=== PATIENT | male | born 1980 | race Caucasian/White ===

== ENCOUNTER 2019-09-15 00:44 | Emergency (ER) | payer OTHER ==
[~2019-09-15] VITALS: Ht 188 cm; Wt 137.3 kg
[2019-09-15 00:49] VITALS: TEMP 99.5
[2019-09-15 01:10] LABS: COLLECTION METHOD CLEAN CATCH
[2019-09-15 01:18] LABS: MUCOUS Present /lpf; PH 5 (5-8); SQUAMOUS EPITHELIAL None Seen /hpf; URINE APPEARANCE Clear; URINE BACTERIA None Seen /hpf; URINE BILIRUBIN Negative (NEGATIVE); URINE BLOOD 3+ (NEGATIVE); URINE COLOR Yellow; URINE GLUCOSE Negative (NEGATIVE); URINE KETONE Negative (NEGATIVE); URINE LEUKOCYTE ESTERASE Negative (NEGATIVE); URINE NITRATE Negative (NEGATIVE); URINE PROTEIN(semi-quant) Negative (NEGATIVE); URINE RBC 20-50 /hpf; URINE UROBILINOGEN Negative (NEGATIVE)
[2019-09-15 01:33] LABS: BASO # 0.1 (0.0-0.2); BASO % 0.6 % (0.0-2.0); EOS # 0.2 (0.0-0.7); EOS % 2.6 % (0-4.0); GRAN # 4.7 (1.4-6.5); GRAN % 57.8 % (42.2-75.2); HEMATOCRIT 43.5 % (42.0-52.0); HEMOGLOBIN 14.5 g/dl (13.5-18.0); LYMPH # 2.5 (1.2-3.4); LYMPH % 30.9 % (20.0-51.0); MEAN CELL VOLUME 85 fl (80.0-100.0); MEAN CORPUSCULAR HEMOGLOBIN 28 pg (27.0-31.0); MEAN CORPUSCULAR HGB CONC 33 g/dl (33.0-37.0); MEAN PLATELET VOLUME 8.3 fl (7.4-10.4); MONO # 0.7 (0.1-0.6); MONO % 7.9 % (1.7-9.3); PLATELET COUNT 325 K/mm3 (130-400); RED BLOOD COUNT 5.15 M/mm3 (4.20-5.60); REDCELL DISTRIBUTION WIDTH-CV 12.7 % (11.5-14.5)
[2019-09-15 01:46] LABS: ALBUMIN 4.8 gm/dL (3.5-5.0); BILIRUBIN,TOTAL 0.4 mg/dL (0.0-1.0); CALCIUM 10.1 mg/dL (8.4-10.2); CREATININE, serum 0.97 (0.66-1.25); POTASSIUM 3.5 mmol/L (3.4-5.0); TOTAL PROTEIN 7.9 gm/dL (6.4-8.2)
[2019-09-15 12:13] VITALS: BP 152/98; PULSE 105
== END 2019-09-15 12:17 | disposition home or self-care (01) ==
LOC: COL.ER 00:44
PROVIDERS: Emergency Medicine
DX: G43.909 Migraine, unspecified, not intractable, without status migrainosus (principal); N23 Unspecified renal colic; Z90.89 Acquired absence of other organs; Z87.442 Personal history of urinary calculi
CPT/HCPCS: J1170; J1200; J1790; J2405; J3010; J7030; J7040

== ENCOUNTER 2019-09-17 01:04 | Inpatient (IN) | payer OTHER ==
[~2019-09-17] VITALS: Ht 188 cm; Wt 100.8 kg
[2019-09-17] VITALS (755 sets, daily range): BP systolic 111–134; BP diastolic 66–90; PULSE 76–101; TEMP 97.4–98.5; O2SAT 72–100
[2019-09-17 02:20] LABS: BASO % 0.4 % (0.0-2.0); EOS # 0.1 (0.0-0.7); EOS % 1.1 % (0-4.0); GRAN # 6.7 (1.4-6.5); GRAN % 70.5 % (42.2-75.2); LYMPH # 2.1 (1.2-3.4); MEAN CELL VOLUME 87 fl (80.0-100.0); MEAN CORPUSCULAR HGB CONC 33 g/dl (33.0-37.0); MEAN PLATELET VOLUME 8.6 fl (7.4-10.4); MONO # 0.6 (0.1-0.6); MONO % 5.8 % (1.7-9.3); PLATELET COUNT 373 K/mm3 (130-400); REDCELL DISTRIBUTION WIDTH-CV 12.8 % (11.5-14.5)
[2019-09-17 02:24] LABS: HEMATOCRIT 33.9 % (42.0-52.0); HEMOGLOBIN 11.1 g/dl (13.5-18.0); MEAN CORPUSCULAR HEMOGLOBIN 28 pg (27.0-31.0)
[2019-09-17 02:29] LABS: INR 1.3 (0.8-3.0); PROTHROMBIN TIME 14.9 SECONDS (9.7-12.8)
[2019-09-17 02:31] LABS: PARTIAL THROMBOPLASTIN TIME 28.7 SECONDS (26.0-37.0)
[2019-09-17 02:34] LABS: BILIRUBIN,TOTAL 0.7 mg/dL (0.0-1.0); C-REACTIVE PROTEIN 1.5 mg/dL (0.0-0.9); CALCIUM 8.8 mg/dL (8.4-10.2); CREATININE, serum 1.02 (0.66-1.25); POTASSIUM 3.9 mmol/L (3.4-5.0); TOTAL PROTEIN 6.6 gm/dL (6.4-8.2)
[2019-09-17 02:49] LABS: ERYTHROCYTE SEDIMENTATION RATE 13 mm/hr (0-15)
[2019-09-17 03:05] LABS: COLLECTION METHOD CLEAN CATCH
[2019-09-17 03:10] LABS: MUCOUS Present /lpf; PH 6 (5-8); SQUAMOUS EPITHELIAL None Seen /hpf; URINE APPEARANCE Clear; URINE BACTERIA None Seen /hpf; URINE BILIRUBIN Negative (NEGATIVE); URINE BLOOD Negative (NEGATIVE); URINE COLOR Yellow; URINE GLUCOSE Negative (NEGATIVE); URINE KETONE 1+ (NEGATIVE); URINE LEUKOCYTE ESTERASE Negative (NEGATIVE); URINE NITRATE Negative (NEGATIVE); URINE PROTEIN(semi-quant) Negative (NEGATIVE); URINE RBC 0-2 /hpf; URINE UROBILINOGEN Negative (NEGATIVE)
--- NOTE | 2019-09-17 04:02 | NUR ---
Revceived telephone report from BEATRICE Thompson.
[2019-09-17] MEDS ORDERED: NEURONTIN600 MG/TAB PO (04:04)
[2019-09-17] MEDS ORDERED: KLONOPIN 1MG1 MG PO (04:05)
[2019-09-17] MEDS ORDERED: SOMA 350MG350 MG/TAB PO (04:05)
[2019-09-17] MEDS ORDERED: INDERAL40 MG PO (04:06)
[2019-09-17] MEDS ORDERED: LEXAPRO 10MG10 MG PO (04:06)
--- NOTE | 2019-09-17 04:30 | NUR ---
Patient alert and oriented. Reporting 9\10 pain to flanks, head and abdomen to rectum. Notified hospitalist. VS stable at this time.
[2019-09-17] MEDS ORDERED: EXCEDRIN1 TAB PO (04:54)
[2019-09-17] MEDS ORDERED: PEPTO BISMOL262 MG (04:55)
[2019-09-17] MEDS ORDERED: MULTI VITAMINS1 TAB PO (04:57)
[2019-09-17] MEDS ORDERED: NIACIN 100100 MG/TAB PO (04:58)
[2019-09-17] MEDS ORDERED: BENADRYL25 M2 PO (04:58)
[2019-09-17] MEDS ORDERED: KLONOPIN2 MG PO (05:00)
--- NOTE | 2019-09-17 05:30 | NUR ---
Assisted up to commode. Reporting dizziness and weakness while standing. Able to transfer from bed to bedside commode with standby assist. Instructed patient to call if needing to get up and not to attempt transfer independently. Had dark red bloody stool. Continues to report abdominal and head pain. Notified hospitalist and received PRN dose of dilauded. Will continue to monitor.
[2019-09-17 06:01] LABS: BASO # 0.1 (0.0-0.2); BASO % 0.4 % (0.0-2.0); EOS # 0.1 (0.0-0.7); EOS % 0.5 % (0-4.0); GRAN # 10.4 (1.4-6.5); GRAN % 80.2 % (42.2-75.2); HEMATOCRIT 32.1 % (42.0-52.0); HEMOGLOBIN 10.2 g/dl (13.5-18.0); LYMPH # 1.6 (1.2-3.4); LYMPH % 12.3 % (20.0-51.0); MEAN CELL VOLUME 89 fl (80.0-100.0); MEAN CORPUSCULAR HEMOGLOBIN 28 pg (27.0-31.0); MEAN CORPUSCULAR HGB CONC 32 g/dl (33.0-37.0); MEAN PLATELET VOLUME 8.7 fl (7.4-10.4); MONO # 0.8 (0.1-0.6); MONO % 6.2 % (1.7-9.3); PLATELET COUNT 359 K/mm3 (130-400); RED BLOOD COUNT 3.62 M/mm3 (4.20-5.60); REDCELL DISTRIBUTION WIDTH-CV 12.9 % (11.5-14.5)
--- NOTE | 2019-09-17 07:30 | NUR ---
Received report from BEATRICE Selby. Patient is restless in bed and complaining of pain. Patient states pain is 9/10 and pain meds are not working. This nurse will assess patient's pain. Call light and night side table are within reach.
--- NOTE | 2019-09-17 08:00 | NUR ---
Patient has blood in urine and stool. Blood is bright red to reddish brown. Will continue to monitor guest throughout stay.
--- NOTE | 2019-09-17 12:00 | NUR ---
Patient complains of pain in the abdomen which radiates to the flanks, to the intestines and to lower back. Patient stated his pain is unbearable and wanted to speak with the doctor in reference to his pain. This nurse informed the patient she would contact the doctor and follow up with him afterwards.
--- NOTE | 2019-09-17 12:06 | NUR ---
SW contacted the patient to discuss discharge plan. The patient lives in [place] with a roommate. He reports independence with ADLs and has a cane available to him when needed. He states that he needs occasional assistance getting up the stairs to his bathroom, but he states that his roommate is able to assist him up the stairs. The patient receives primary care at [facility] and he receives his medications at [facility]. He reports no difficulties obtaining his meds. The patient does not have advanced directives completed. He states that his next of kin is his , Sola Sam (ph#[phone]). Sola lives in [place], [place]. 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 The patient plans to return back home with his roommate upon discharge. SW to continue to follow as needed.
--- NOTE | 2019-09-17 12:26 | NUR ---
First visit from the body sander. No needs right now.
--- NOTE | 2019-09-17 14:52 | NUR ---
This nurse spoke with Dr. Chappell in reference to the patient's complaint of pain medication not being strong enough. Dr. Chappell stated he was not going to increase current dosage of Fentanyl 50 mcg but gave the verbal order to increase current frequency from every three hours to every two hours.
[2019-09-17 15:02] LABS: HEMATOCRIT 27.8 % (42.0-52.0)
--- NOTE | 2019-09-17 19:20 | NUR ---
Report given to Joanna. Patient is sleeping in bed. Call light and bedside table are within reach.
--- NOTE | 2019-09-17 21:20 | NUR ---
PATIENT C/O NAUSEA. SPOKE TO NEGRO FARIAS AND SHE SAID DUE TO HIS PREVIOUS QTC LEVEL WE CAN NOT GIVE ZOFRAN. SHE ALSO ORDERED AN EKG, AND A MAGNESIUM LEVEL AND PUT A HOLD ON LEXEPRO AND FLEXERIL.
[2019-09-17 22:23] LABS: HEMATOCRIT 26.8 % (42.0-52.0); HEMOGLOBIN 8.7 g/dl (13.5-18.0)
--- NOTE | 2019-09-17 23:00 | NUR ---
GI DOCTOR CALLED, MAY HAVE BEEN . HE ASKED ABOUT THE PATIENT AND IF HE WAS TOLERATING THE BOWEL PREP OKAY. I TOLD HIM THE PATIENT WAS DOING GREAT WITH IT. HE SAID THAT WILL BE DOING THE EGD TOMORROW AND IT IS SCHEDULED FOR 0900.
[2019-09-18] VITALS (433 sets, daily range): BP systolic 117–168; BP diastolic 53–87; PULSE 71–111; TEMP 95.6–98.1; O2SAT 85–100
--- NOTE | 2019-09-18 02:00 | NUR ---
PATIENT COMPLAINING OF SEVERE HEADACHE AND SAID FENTANYL WASNT HELPING. HE ASKED FOR ME TO CALL THE PROVIDER TO SEE IF HE COULD GET SOMETHING ELSE FOR PAIN. CALLED DINORA AND SHE SAID SHE SPOKE TO ABOUT THIS PATEINT AND SAID HE WILL NOT GET ANY OTHER PAIN MEDS SCHEDULED.
--- NOTE | 2019-09-18 02:40 | NUR ---
PATIENT WAS STILL C/O OF SEVERE HEADACHE AND BECAME EMOTIONAL AND SAID HE FELT LIKE THE DOCTORS WERE NOT LISTENING TO HIM AND DIDNT BELIEVE HE WAS REALLY IN PAIN. HE BEGAN TO TELL ME IT IS HIS RIGHT TO SEE HIS DOCTOR IF HE WANTS TO AND SO HE ASKED FOR DINORA TO COME DOWN TO SPEAK TO HIM FACE TO FACE. HE BEGAN TO GO ON TELLING ME HIS HEADACHES HAVE BEEN SO BAD IN THE PAST THAT HES HAD TO GET ADMITTED AND BE ON A KETAMINE GTT AND BE PUT IN A COMA. HE WAS FEARFUL THAT WOULD HAPPEN AGAIN. HE ALSO BROUGHT UP HE COULD CALL [facility] ABOUT THIS SITUATION. I TRIED TO REASSURE HIM THAT NO ONE IS NEGLECTING HIS PAIN AND THAT DINORA IS JUST VERY BUSY RIGHT NOW BUT I WILL CALL HER AGAIN TO COME AND SEE HIM.
--- NOTE | 2019-09-18 03:30 | NUR ---
CALLED DINORA AGAIN ABOUT PATIENT'S HEADACHE AND NEED TO SPEAK TO HER FACE TO FACE. SHE SAID SHE WOULD COME DOWN.
--- NOTE | 2019-09-18 04:00 | NUR ---
DINORA AT PATIENTS BEDSIDE. CONVERSATION WENT WELL BETWEEN THEM. PATIENT STATED HE FELT LISTENED TO AFTERWARDS AND HE FELT BETTER. DINORA MADE CHANGES TO PATIENTS PAIN MEDS, SWITCHED FENTANYL TO DILAUDID Q2HRS BECAUSE PATIENT SAID HE WOULD PREFER THAT INSTEAD.
[2019-09-18 06:11] LABS: BASO % 0.8 % (0.0-2.0); EOS # 0.2 (0.0-0.7); EOS % 4.1 % (0-4.0); GRAN # 2.4 (1.4-6.5); GRAN % 46.6 % (42.2-75.2); LYMPH # 2.1 (1.2-3.4); LYMPH % 41.1 % (20.0-51.0); MEAN CELL VOLUME 86 fl (80.0-100.0); MEAN CORPUSCULAR HGB CONC 33 g/dl (33.0-37.0); MEAN PLATELET VOLUME 8.8 fl (7.4-10.4); MONO # 0.4 (0.1-0.6); MONO % 7.2 % (1.7-9.3); REDCELL DISTRIBUTION WIDTH-CV 12.9 % (11.5-14.5)
[2019-09-18 06:14] LABS: MEAN CORPUSCULAR HEMOGLOBIN 29 pg (27.0-31.0); PLATELET COUNT 246 K/mm3 (130-400)
[2019-09-18 06:23] LABS: CALCIUM 7.3 mg/dL (8.4-10.2); CREATININE, serum 0.7 (0.66-1.25); POTASSIUM 3.5 mmol/L (3.4-5.0)
--- NOTE | 2019-09-18 07:10 | NUR ---
GAVE REPORT TO BEATRICE BURCE.
--- NOTE | 2019-09-18 08:54 | NUR ---
Pt to Endoscopy Lab for procedure
--- NOTE | 2019-09-18 11:26 | NUR ---
PATIENT WILL TRANSFER TO [facility] D/T NEEDING INTERVENTIONAL RADIOLOGY. PATIENT ACCEPTED BY DR. SAMAYOA. HE WILL GO TO ROOM 3289. REPORT WILL BE CALLED TO [phone]. [facility] WILL TRANSPORT THE PATIENT. THEY WILL BE HERE SHORTLY TO GET THE PATIENT. CONSENT TO TRANSFER SIGNED BY PATIENT AND DR. POND. PACKET MADE AND IMAGES CLOUDED TO [facility].
--- NOTE | 2019-09-18 11:30 | NUR ---
The patient is to transfer to [facility]. No additional needs at this time.
--- NOTE | 2019-09-18 12:04 | NUR ---
Report called to receiving nurse at [facility]. Patient transferred to Room 3289 at [facility] via EMS at 1200.
== END 2019-09-18 12:00 | disposition short-term general hospital (02) | DRG 378 ==
LOC: COL.ER 01:04 → ICU 03:29 → IMCU 09-18 09:58
PROVIDERS: Emergency Medicine; Internal Medicine; Internal Medicine Gastroenterology; ADMIT Student in an Organized Health Care Education/Training Program
PROC: 0DJ08ZZ Inspection of Upper Intestinal Tract, Via Natural or Artificial Opening Endoscopic (ICD-10-PCS; principal; 2019-09-18 09:00)
DX: K25.4 Chronic or unspecified gastric ulcer with hemorrhage (principal); D62 Acute posthemorrhagic anemia; F41.9 Anxiety disorder, unspecified; F43.10 Post-traumatic stress disorder, unspecified; F32.9 Major depressive disorder, single episode, unspecified; G43.909 Migraine, unspecified, not intractable, without status migrainosus; G89.29 Other chronic pain; Z87.442 Personal history of urinary calculi; Z87.898 Personal history of other specified conditions; Z90.89 Acquired absence of other organs; Q07.00 Arnold-Chiari syndrome without spina bifida or hydrocephalus
CPT/HCPCS: 99223-AI; 99239; C9113; J1170; J1200; J2405; J2704; J3010; J7030; Q9967

== ENCOUNTER 2019-10-04 04:56 | Emergency (ER) | payer OTHER ==
[~2019-10-04] VITALS: Ht 188 cm; Wt 132.7 kg
[~2019-10-04 04:56] MED LIST: BENADRYL25 M2 PO; DAZIDOX10 MG PO; EXCEDRIN1 TAB PO; INDERAL40 MG PO; KLONOPIN 1MG1 MG PO; KLONOPIN2 MG PO; LEXAPRO 10MG10 MG PO; LEXAPRO20 MG PO; MULTI VITAMINS1 TAB PO; NEURONTIN600 MG/TAB PO; NIACIN 100100 MG/TAB PO; PEPTO BISMOL262 MG; PROTONIX 40MG T40 MG PO; SOMA 350MG350 MG/TAB PO
[2019-10-04 05:42] LABS: BASO % 0.7 % (0.0-2.0); EOS # 0.1 (0.0-0.7); EOS % 2.2 % (0-4.0); GRAN % 66.1 % (42.2-75.2); LYMPH % 21.7 % (20.0-51.0); MEAN CELL VOLUME 84 fl (80.0-100.0); MEAN CORPUSCULAR HGB CONC 31 g/dl (33.0-37.0); MEAN PLATELET VOLUME 8.9 fl (7.4-10.4); MONO # 0.4 (0.1-0.6); MONO % 9.1 % (1.7-9.3); PLATELET COUNT 512 K/mm3 (130-400); REDCELL DISTRIBUTION WIDTH-CV 16.3 % (11.5-14.5)
[2019-10-04 05:45] LABS: HEMATOCRIT 25.2 % (42.0-52.0); HEMOGLOBIN 7.7 g/dl (13.5-18.0); MEAN CORPUSCULAR HEMOGLOBIN 26 pg (27.0-31.0)
[2019-10-04 05:46] LABS: INR 1.2 (0.8-3.0); PROTHROMBIN TIME 13.9 SECONDS (9.7-12.8)
[2019-10-04 05:54] LABS: ALBUMIN 3.7 gm/dL (3.5-5.0); BILIRUBIN,TOTAL 0.3 mg/dL (0.0-1.0); CALCIUM 8.6 mg/dL (8.4-10.2); CREATININE, serum 0.91 (0.66-1.25); POTASSIUM 3.8 mmol/L (3.4-5.0); TOTAL PROTEIN 6.7 gm/dL (6.4-8.2)
[2019-10-04] MEDS ORDERED: DIFLUCAN200 MG PO (07:27)
[2019-10-04 09:22] LABS: HEMATOCRIT 23.3 % (42.0-52.0); HEMOGLOBIN 7.1 g/dl (13.5-18.0)
[2019-10-04 09:36] VITALS: BP 136/71; PULSE 118
== END 2019-10-04 09:47 | disposition home or self-care (01) ==
LOC: COL.ER 04:56
PROVIDERS: Emergency Medicine
DX: K92.2 Gastrointestinal hemorrhage, unspecified (principal); R55 Syncope and collapse; K21.9 Gastro-esophageal reflux disease without esophagitis; G43.909 Migraine, unspecified, not intractable, without status migrainosus; E66.9 Obesity, unspecified; F43.10 Post-traumatic stress disorder, unspecified; K58.9 Irritable bowel syndrome, unspecified; Z87.798 Personal history of other (corrected) congenital malformations
CPT/HCPCS: C9113; J1170; J2405; J3010; J7030

== ENCOUNTER 2019-12-09 23:20 | Emergency (ER) | payer OTHER ==
[~2019-12-09] VITALS: Ht 188 cm; Wt 127.3 kg
[~2019-12-09 23:20] MED LIST changes: +BACTRIM DS 8001 TAB PO; +DIFLUCAN200 MG PO; +OMNICEF 300MG300 MG PO
[2019-12-09 23:52] VITALS: TEMP 98.2
[2019-12-10 01:02] LABS: ARTERIAL BLD GAS O2 SATURATION 96.8 % (92-100); ARTERIAL BLD GAS TCO2 CT 27.3; ARTERIAL BLOOD GAS BASE EXCESS 1.7 (-2-2); ARTERIAL BLOOD GAS HCO3 26.1 meq/L (22-26); ARTERIAL BLOOD GAS PCO2 40.2 mmHg (35-45); ARTERIAL BLOOD GAS PO2 88.5 mmHg (80-100); ARTERIAL BLOOD GAS pH 7.43 (7.35-7.45)
[2019-12-10 01:23] LABS: HEMOGLOBIN 10.8 g/dl (13.5-18.0); MEAN CELL VOLUME 76 fl (80.0-100.0); MEAN CORPUSCULAR HEMOGLOBIN 23 pg (27.0-31.0); MEAN CORPUSCULAR HGB CONC 30 g/dl (33.0-37.0); MEAN PLATELET VOLUME 8.5 fl (7.4-10.4); PLATELET COUNT 387 K/mm3 (130-400); RED BLOOD COUNT 4.78 M/mm3 (4.20-5.60); REDCELL DISTRIBUTION WIDTH-CV 18.3 % (11.5-14.5)
[2019-12-10 01:24] LABS: HEMATOCRIT 36.1 % (42.0-52.0)
[2019-12-10 01:51] LABS: ALANINE AMINOTRANSFERASE 20 U/L (4-49); ALBUMIN 4.2 gm/dL (3.5-5.0); ALKALINE PHOSPHATASE 87 U/L (50-136); ANION GAP 10 mmol/L (7-16); AST,SGOT 24 U/L (15-37); BILIRUBIN,TOTAL 0.2 mg/dL (0.0-1.0); BLOOD UREA NITROGEN 13 mg/dL (9-20); C-REACTIVE PROTEIN 1.9 mg/dL (0.0-0.9); CALCIUM 8.9 mg/dL (8.4-10.2); CARBON DIOXIDE 27 mmol/L (22-30); CHLORIDE 103 mmol/L (98-107); CREATININE, serum 1.12 (0.66-1.25); GLUCOSE 102 mg/dL (74-106); POTASSIUM 3.6 mmol/L (3.4-5.0); SODIUM 140 mmol/L (137-145); TOTAL PROTEIN 7.4 gm/dL (6.4-8.2)
[2019-12-10 01:59] LABS: TROPONIN-I < 0.012 ng/mL (0.000-0.035)
[2019-12-10 02:35] LABS: ANISOCYTOSIS 2+; BAND 10 % (0-10); LYMPHOCYTE 32 % (20.0-51.0); MICROCYTOSIS 1+; NEUTROPHILS 52 % (42.0-75.2); OVALOCYTES 1+; PLATELET ESTIMATE NORMAL (NORMAL)
[2019-12-10 02:36] LABS: HYPOCHROMIA 1+
[2019-12-10 04:01] LABS: COLLECTION METHOD CLEAN CATCH
[2019-12-10 04:08] LABS: PH 7 (5-8); SQUAMOUS EPITHELIAL None Seen /hpf; URINE APPEARANCE Clear; URINE BACTERIA None Seen /hpf; URINE BILIRUBIN Negative (NEGATIVE); URINE BLOOD Negative (NEGATIVE); URINE COLOR Yellow; URINE GLUCOSE Negative (NEGATIVE); URINE KETONE Negative (NEGATIVE); URINE LEUKOCYTE ESTERASE Negative (NEGATIVE); URINE NITRATE Negative (NEGATIVE); URINE PROTEIN(semi-quant) Negative (NEGATIVE); URINE RBC 0-2 /hpf; URINE UROBILINOGEN Negative (NEGATIVE)
[2019-12-10 04:44] LABS: TRICYCLIC ANTIDEPRESS URINE NEGATIVE
[2019-12-10 08:30] VITALS: BP 131/87; PULSE 66
== END 2019-12-10 09:05 | disposition home or self-care (01) ==
LOC: COL.ER 23:20
PROVIDERS: Physician Assistant
DX: S70.311D Abrasion, right thigh, subsequent encounter (principal); G43.909 Migraine, unspecified, not intractable, without status migrainosus; R50.9 Fever, unspecified; G89.11 Acute pain due to trauma; G89.29 Other chronic pain; Z20.828 Contact with and (suspected) exposure to other viral communicable diseases; Z87.442 Personal history of urinary calculi; Z88.6 Allergy status to analgesic agent; W26.8XXD Contact with other sharp object(s), not elsewhere classified, subsequent encounter
CPT/HCPCS: J1170; J1200; J2405; J2550; J3010; J7030; J7040; Q9967

== ENCOUNTER 2020-01-26 08:25 | Emergency (ER) | payer OTHER ==
[~2020-01-26] VITALS: Ht 188 cm; Wt 125.5 kg
[2020-01-26 08:37] VITALS: BP 137/71; TEMP 98
[2020-01-26 09:51] LABS: BASO % 0.2 % (0.0-2.0); GRAN # 8.9 (1.4-6.5); GRAN % 81.1 % (42.2-75.2); HEMOGLOBIN 10.3 g/dl (13.5-18.0); LYMPH % 8.6 % (20.0-51.0); MEAN CELL VOLUME 76 fl (80.0-100.0); MEAN CORPUSCULAR HEMOGLOBIN 22 pg (27.0-31.0); MEAN CORPUSCULAR HGB CONC 29 g/dl (33.0-37.0); MEAN PLATELET VOLUME 8.7 fl (7.4-10.4); MONO # 1.1 (0.1-0.6); MONO % 9.8 % (1.7-9.3); PLATELET COUNT 337 K/mm3 (130-400); REDCELL DISTRIBUTION WIDTH-CV 17.6 % (11.5-14.5)
[2020-01-26 09:52] LABS: HEMATOCRIT 35.8 % (42.0-52.0)
[2020-01-26 10:02] LABS: ALANINE AMINOTRANSFERASE 33 U/L (4-49); ALBUMIN 4.1 gm/dL (3.5-5.0); ALKALINE PHOSPHATASE 57 U/L (50-136); ANION GAP 9 mmol/L (7-16); AST,SGOT 22 U/L (15-37); BILIRUBIN,TOTAL 0.3 mg/dL (0.0-1.0); BLOOD UREA NITROGEN 14 mg/dL (9-20); CALCIUM 8.7 mg/dL (8.4-10.2); CARBON DIOXIDE 25 mmol/L (22-30); CHLORIDE 106 mmol/L (98-107); CREATININE, serum 0.87 (0.66-1.25); GLUCOSE 128 mg/dL (74-106); POTASSIUM 4.3 mmol/L (3.4-5.0); SODIUM 140 mmol/L (137-145); TOTAL PROTEIN 6.8 gm/dL (6.4-8.2)
[2020-01-26 10:18] LABS: TROPONIN-I < 0.012 ng/mL (0.000-0.035)
[2020-01-26] MEDS ORDERED: REGLAN 5MG T5 MG/TAB PO ×2 (10:58)
[2020-01-26] MEDS ORDERED: PROAIR HFA0.09 MG/AC IH (10:58)
[2020-01-26 11:25] VITALS: PULSE 78
== END 2020-01-26 11:25 | disposition home or self-care (01) ==
LOC: COL.ER 08:25
PROVIDERS: Physician Assistant
DX: R07.81 Pleurodynia (principal); R06.00 Dyspnea, unspecified; R06.02 Shortness of breath; Z79.1 Long term (current) use of non-steroidal anti-inflammatories (NSAID); Z79.899 Other long term (current) drug therapy; Z79.891 Long term (current) use of opiate analgesic; Z88.6 Allergy status to analgesic agent; Z88.8 Allergy status to other drugs, medicaments and biological substances; K21.9 Gastro-esophageal reflux disease without esophagitis; F41.9 Anxiety disorder, unspecified
CPT/HCPCS: J2270; J2405; J7030

== ENCOUNTER 2020-02-21 19:08 | Emergency (ER) | payer OTHER ==
[~2020-02-21 19:08] MED LIST changes: +PROAIR HFA0.09 MG/AC IH; +REGLAN 5MG T5 MG/TAB PO
[2020-02-21 20:51] LABS: EOS # 0.1 (0.0-0.7); EOS % 2.3 % (0-4.0); GRAN # 1.2 (1.4-6.5); GRAN % 53.6 % (42.2-75.2); HEMATOCRIT 38.2 % (42.0-52.0); HEMOGLOBIN 11.3 g/dl (13.5-18.0); LYMPH # 0.7 (1.2-3.4); LYMPH % 31.8 % (20.0-51.0); MEAN CELL VOLUME 76 fl (80.0-100.0); MEAN CORPUSCULAR HEMOGLOBIN 22 pg (27.0-31.0); MEAN CORPUSCULAR HGB CONC 30 g/dl (33.0-37.0); MEAN PLATELET VOLUME 8.8 fl (7.4-10.4); MONO # 0.3 (0.1-0.6); MONO % 11.8 % (1.7-9.3); PLATELET COUNT 240 K/mm3 (130-400); RED BLOOD COUNT 5.04 M/mm3 (4.20-5.60); REDCELL DISTRIBUTION WIDTH-CV 18.6 % (11.5-14.5)
[2020-02-21 21:01] LABS: BILIRUBIN,TOTAL 0.3 mg/dL (0.0-1.0); CALCIUM 8.1 mg/dL (8.4-10.2); CREATININE, serum 0.89 (0.66-1.25); POTASSIUM 4.1 mmol/L (3.4-5.0); TOTAL PROTEIN 6.9 gm/dL (6.4-8.2)
[2020-02-21 23:39] VITALS: BP 129/64; PULSE 85; TEMP 100.4
== END 2020-02-21 23:42 | disposition home or self-care (01) ==
LOC: COL.ER 19:08
PROVIDERS: Physician Assistant
DX: U07.1 COVID-19 (principal); B34.9 Viral infection, unspecified; F41.9 Anxiety disorder, unspecified; Z87.891 Personal history of nicotine dependence; Z90.49 Acquired absence of other specified parts of digestive tract; F43.12 Post-traumatic stress disorder, chronic; Z88.6 Allergy status to analgesic agent; Z88.8 Allergy status to other drugs, medicaments and biological substances
CPT/HCPCS: J2550; J7030

== ENCOUNTER 2020-02-24 23:39 | Emergency (ER) | payer OTHER ==
[2020-02-24 23:58] VITALS: TEMP 99.8
[2020-02-25 00:39] LABS: HEMATOCRIT 40.2 % (42.0-52.0); HEMOGLOBIN 11.8 g/dl (13.5-18.0); MEAN CELL VOLUME 75 fl (80.0-100.0); MEAN CORPUSCULAR HEMOGLOBIN 22 pg (27.0-31.0); MEAN CORPUSCULAR HGB CONC 29 g/dl (33.0-37.0); MEAN PLATELET VOLUME 8.3 fl (7.4-10.4); PLATELET COUNT 259 K/mm3 (130-400); RED BLOOD COUNT 5.34 M/mm3 (4.20-5.60); REDCELL DISTRIBUTION WIDTH-CV 18.2 % (11.5-14.5)
[2020-02-25 00:45] LABS: INR 1.1 (0.8-3.0); PROTHROMBIN TIME 12.6 SECONDS (9.7-12.8)
[2020-02-25 00:48] LABS: PARTIAL THROMBOPLASTIN TIME 33.1 SECONDS (26.0-37.0)
[2020-02-25 00:49] LABS: ALBUMIN 4.1 gm/dL (3.5-5.0); BILIRUBIN,TOTAL 0.3 mg/dL (0.0-1.0); CALCIUM 8.4 mg/dL (8.4-10.2); CREATININE, serum 0.95 (0.66-1.25)
[2020-02-25 01:04] LABS: ANISOCYTOSIS 2+; BAND 5 % (0-10); EOSINOPHIL 4 % (0-4); LYMPHOCYTE 55 % (20.0-51.0); MICROCYTOSIS 1+; NEUTROPHILS 29 % (42.0-75.2); PLATELET ESTIMATE NORMAL (NORMAL)
[2020-02-25] MEDS ORDERED: PERCOCET 325 MG1 TA2 PO (02:32)
[2020-02-25 05:04] VITALS: BP 113/64; PULSE 70
== END 2020-02-25 05:10 | disposition home or self-care (01) ==
LOC: COL.ER 23:39
PROVIDERS: Emergency Medicine
DX: K64.4 Residual hemorrhoidal skin tags (principal); U07.1 COVID-19; R10.9 Unspecified abdominal pain; F43.10 Post-traumatic stress disorder, unspecified; F41.9 Anxiety disorder, unspecified; Z90.49 Acquired absence of other specified parts of digestive tract; Z88.6 Allergy status to analgesic agent; Z88.8 Allergy status to other drugs, medicaments and biological substances
CPT/HCPCS: J1200; J2550; J7030; J7050

== ENCOUNTER 2020-02-29 15:18 | Emergency (ER) | payer OTHER ==
[~2020-02-29] VITALS: Ht 188 cm; Wt 120.5 kg
[~2020-02-29 15:18] MED LIST changes: +PERCOCET 325 MG1 TA2 PO
[2020-02-29 15:58] VITALS: TEMP 98.5
[2020-02-29 17:37] LABS: COLLECTION METHOD CLEAN CATCH
[2020-02-29 17:59] LABS: ALANINE AMINOTRANSFERASE 28 U/L (4-49); ALBUMIN 4.3 gm/dL (3.5-5.0); ALKALINE PHOSPHATASE 57 U/L (50-136); ANION GAP 9 mmol/L (7-16); AST,SGOT 24 U/L (15-37); BILIRUBIN,TOTAL 0.4 mg/dL (0.0-1.0); BLOOD UREA NITROGEN 14 mg/dL (9-20); CALCIUM 8.6 mg/dL (8.4-10.2); CARBON DIOXIDE 26 mmol/L (22-30); CHLORIDE 106 mmol/L (98-107); CREATININE, serum 0.92 (0.66-1.25); GLUCOSE 83 mg/dL (74-106); POTASSIUM 4.1 mmol/L (3.4-5.0); SODIUM 141 mmol/L (137-145); TOTAL PROTEIN 7.2 gm/dL (6.4-8.2)
[2020-02-29 18:00] LABS: C-REACTIVE PROTEIN < 0.5 mg/dL (0.0-0.9)
[2020-02-29 18:01] LABS: BASO % 0.2 % (0.0-2.0); EOS % 0.6 % (0-4.0); GRAN # 3.3 (1.4-6.5); GRAN % 69.4 % (42.2-75.2); HEMOGLOBIN 11.5 g/dl (13.5-18.0); LYMPH % 20.2 % (20.0-51.0); MEAN CELL VOLUME 75 fl (80.0-100.0); MEAN CORPUSCULAR HEMOGLOBIN 22 pg (27.0-31.0); MEAN CORPUSCULAR HGB CONC 30 g/dl (33.0-37.0); MEAN PLATELET VOLUME 8.4 fl (7.4-10.4); MONO # 0.5 (0.1-0.6); MONO % 9.4 % (1.7-9.3); PLATELET COUNT 370 K/mm3 (130-400); RED BLOOD COUNT 5.18 M/mm3 (4.20-5.60); REDCELL DISTRIBUTION WIDTH-CV 17.9 % (11.5-14.5)
[2020-02-29 18:02] LABS: MUCOUS Present /lpf; PH 7 (5-8); SQUAMOUS EPITHELIAL None Seen /hpf; URINE APPEARANCE Clear; URINE BACTERIA None Seen /hpf; URINE BILIRUBIN Negative (NEGATIVE); URINE BLOOD Negative (NEGATIVE); URINE COLOR Yellow; URINE GLUCOSE Negative (NEGATIVE); URINE KETONE Negative (NEGATIVE); URINE LEUKOCYTE ESTERASE Negative (NEGATIVE); URINE NITRATE Negative (NEGATIVE); URINE PROTEIN(semi-quant) Negative (NEGATIVE); URINE RBC 0-2 /hpf; URINE UROBILINOGEN Negative (NEGATIVE)
[2020-02-29 18:09] LABS: TRICYCLIC ANTIDEPRESS URINE NEGATIVE
[2020-02-29 21:00] VITALS: BP 136/73; PULSE 102
[2020-03-02] MEDS ORDERED: PHENERGAN 25 TA25 MG PO (22:30)
[2020-04-21] MEDS ORDERED: KEPPRA 500MG500 MG PO (10:08)
[2020-04-24] MEDS ORDERED: KEPPRA1000 MG PO (16:06)
== END 2020-03-01 02:05 | disposition home or self-care (01) ==
LOC: COL.ER 15:18
PROVIDERS: Family Medicine
DX: S20.219A Contusion of unspecified front wall of thorax, initial encounter (principal); R40.2410 Glasgow coma scale score 13-15, unspecified time; G89.29 Other chronic pain; Z88.6 Allergy status to analgesic agent; Z88.8 Allergy status to other drugs, medicaments and biological substances; V43.52XA Car driver injured in collision with other type car in traffic accident, initial encounter
CPT/HCPCS: J1200; J1790; J7030

== ENCOUNTER 2020-03-02 19:39 | Emergency (ER) | payer OTHER ==
[~2020-03-02] VITALS: Ht 188 cm; Wt 127.3 kg
[2020-03-02 19:56] VITALS: TEMP 98.9
[2020-03-02] MEDS ORDERED: PHENERGAN 25 TA25 MG PO (22:30)
[2020-03-02 22:59] VITALS: BP 128/75; PULSE 85
== END 2020-03-02 22:52 | disposition home or self-care, planned readmission (81) ==
LOC: COL.ER 19:39
DX: S93.602A Unspecified sprain of left foot, initial encounter (principal); G43.909 Migraine, unspecified, not intractable, without status migrainosus; X50.1XXA Overexertion from prolonged static or awkward postures, initial encounter; Y92.009 Unspecified place in unspecified non-institutional (private) residence as the place of occurrence of the external cause
CPT/HCPCS: J1200; J2270; J2405; J2550; J7030

== ENCOUNTER 2020-03-03 11:41 | Emergency (ER) | payer OTHER ==
[~2020-03-03] VITALS: Ht 188 cm; Wt 127.3 kg
[~2020-03-03 11:41] MED LIST changes: +PHENERGAN 25 TA25 MG PO
[2020-03-03 15:41] VITALS: BP 140/89; PULSE 95; TEMP 98.2
== END 2020-03-03 15:30 | disposition home or self-care (01) ==
LOC: COL.ER 11:41
DX: G43.909 Migraine, unspecified, not intractable, without status migrainosus (principal); F41.9 Anxiety disorder, unspecified; F43.10 Post-traumatic stress disorder, unspecified; Z85.47 Personal history of malignant neoplasm of testis; Z90.89 Acquired absence of other organs; Z90.49 Acquired absence of other specified parts of digestive tract; Z88.6 Allergy status to analgesic agent; Z88.8 Allergy status to other drugs, medicaments and biological substances
CPT/HCPCS: J1200; J1790; J2270; J2405; J2550; J7030

== ENCOUNTER 2020-06-26 17:50 | Emergency (ER) | payer SELFPAY ==
[~2020-06-26] VITALS: Ht 188 cm; Wt 110.0 kg
[~2020-06-26 17:50] MED LIST changes: +KEPPRA 500MG500 MG PO; +KEPPRA1000 MG PO
[2020-06-26 18:05] VITALS: BP 137/86; PULSE 88; TEMP 98.9
== END 2020-06-26 20:27 | disposition left against medical advice (07) ==
LOC: COL.ER 17:50
DX: M54.9 Dorsalgia, unspecified (principal); Z90.89 Acquired absence of other organs; Z88.6 Allergy status to analgesic agent; Z88.8 Allergy status to other drugs, medicaments and biological substances